=== PATIENT | female | born 1985 | race African-American/Black ===

== ENCOUNTER 2017-02-06 20:47 | Emergency (ER) | payer OTHER ==
[~2017-02-06] VITALS: Ht 160 cm; Wt 81.7 kg
[~2017-02-06 20:47] MED LIST: ADULT LOW DOSE81 MG PO; ALBUTEROL INHAL17 GM IH; APAP500 PO; AZITHROMYCIN 2250 MG PO; BACTRIM DS TAB1 EACH PO; BENADRYL25 MG PO; BIRTH CONTROL; DAILY GARLIC O400 MG; DELTASONE20 MG PO; DEPO-ESTRAD5 MG/1 ML IM; DIFLUCAN150 M1 PO; DIFLUCAN150 MG PO; DIFLUCAN200 MG PO; DOXYCYCLINE 10100 M1 PO; FAMOTIDINE PO; FLAGYL500 MG PO; IRON325 PO; NAPROSYN500 MG PO; NORCO 5-325 TA1 EACH PO; PERCOCET 5-3251 EACH PO; PHENERGAN-CODE120 ML PO; PREDNISONE 20 M20 M1 PO; PRENATAL PO; SYNTHROID25 MCG PO; URISPAS100 MG PO; YASMIN 28 TABL1 EACH PO; ZPAK PO
[2017-02-06] MEDS ORDERED: NORCO 5-325 TA1 EACH PO (21:48)
[2017-02-06 21:57] VITALS: BP 130/82
== END 2017-02-06 22:03 | disposition home or self-care (01) ==
LOC: ER 20:47
DX: M43.6 Torticollis (principal); J45.909 Unspecified asthma, uncomplicated; E03.9 Hypothyroidism, unspecified; Z90.49 Acquired absence of other specified parts of digestive tract; F12.10 Cannabis abuse, uncomplicated; Z88.0 Allergy status to penicillin

== ENCOUNTER 2017-02-15 19:17 | Emergency (ER) | payer OTHER ==
[~2017-02-15] VITALS: Ht 162.6 cm; Wt 81.7 kg
[2017-02-15] MEDS ORDERED: NORCO 5-325 TA1 EACH PO (19:35)
[2017-02-15] MEDS ORDERED: ROBITUSSIN100 MG/53 PO (19:35)
[2017-02-15 19:56] VITALS: BP 122/86
== END 2017-02-15 20:05 | disposition home or self-care (01) ==
LOC: ER 19:17
DX: M54.5 Low back pain (principal); J06.9 Acute upper respiratory infection, unspecified; J45.909 Unspecified asthma, uncomplicated; Z90.49 Acquired absence of other specified parts of digestive tract; Z86.39 Personal history of other endocrine, nutritional and metabolic disease

== ENCOUNTER 2017-02-21 22:58 | Emergency (ER) | payer OTHER ==
[~2017-02-21] VITALS: Ht 162.6 cm; Wt 81.7 kg
[~2017-02-21 22:58] MED LIST changes: +ROBITUSSIN100 MG/53 PO
[2017-02-21 23:41] LABS: URINE BILIRUBIN NEGATIVE (Negative); URINE BLOOD TRACE (Negative); URINE COLOR YELLOW; URINE GLUCOSE-RANDOM* NEGATIVE (Negative); URINE KETONES NEGATIVE (Negative); URINE LEUKOCYTES-REFLEX NEGATIVE (Negative); URINE PROTEIN (DIPSTICK) NEGATIVE (Negative); URINE SPECIFIC GRAVITY 1.025 (1.003-1.035); URINE UROBILINOGEN 0.2 E.U./dl (0.2-1.0)
[2017-02-21 23:59] LABS: ABSOLUTE NEUTROPHILS 7.7 thou/uL (1.4-8.2); EOSINOPHILS 1.9 % (0.0-3.0); HEMATOCRIT 42.5 % (37.0-47.0); HEMOGLOBIN 14.5 gm/dL (12.0-15.0); LYMPHOCYTES 31.7 % (24.0-44.0); MCHC 34.1 g/dL (28.0-37.0); MCV 91.1 fL (80.0-100.0); MONOCYTES 6.1 % (1.0-8.0); PLATELET COUNT 252 thou/uL (150-400); POLYS 59.3 % (36.0-66.0); RBC 4.67 mil/uL (4.20-5.00); RDW 13.2 % (10.5-14.5)
[2017-02-22 00:07] LABS: ANION GAP 8 mmol/L (7-16); BUN 8 mg/dL (7-18); CALCIUM 9.2 mg/dL (8.5-10.1); CHLORIDE 103 mmol/L (98-107); CO2 27 mmol/L (21-32); GLUCOSE 76 mg/dL (74-106); POTASSIUM 3.5 mmol/L (3.5-5.1); SODIUM 138 mmol/L (136-145)
[2017-02-22 00:11] LABS: MANUAL DIFF NO
[2017-02-22 00:13] LABS: ALBUMIN 4.2 g/dL (3.4-5.0); ALKALINE PHOSPHATASE 84 U/L (46-116); DIRECT BILIRUBIN < 0.1 mg/dL (<0.1-0.3); SGOT 21 U/L (15-37); SGPT 18 U/L (30-65); TOTAL BILIRUBIN 0.2 mg/dL (<0.1-1.0); TOTAL PROTEIN 8.8 g/dL (6.4-8.2)
[2017-02-22 02:14] VITALS: BP 144/97
== END 2017-02-22 02:16 | disposition home or self-care (01) ==
LOC: ER 22:58
PROVIDERS: Emergency Medicine
DX: R10.32 Left lower quadrant pain (principal); D72.829 Elevated white blood cell count, unspecified; J44.9 Chronic obstructive pulmonary disease, unspecified; Z90.49 Acquired absence of other specified parts of digestive tract; F12.10 Cannabis abuse, uncomplicated

== ENCOUNTER 2017-08-26 07:15 | Emergency (ER) | payer OTHER ==
[~2017-08-26] VITALS: Ht 162.6 cm; Wt 81.7 kg
[2017-08-26 07:55] LABS: URINE BILIRUBIN NEGATIVE (Negative); URINE BLOOD 1+ (Negative); URINE CLARITY CLEAR; URINE COLOR YELLOW; URINE GLUCOSE-RANDOM* NEGATIVE (Negative); URINE KETONES NEGATIVE (Negative); URINE LEUKOCYTES-REFLEX TRACE (Negative); URINE NITRITE-REFLEX NEGATIVE (Negative); URINE PROTEIN (DIPSTICK) NEGATIVE (Negative); URINE SPECIFIC GRAVITY 1.015 (1.005-1.035); URINE UROBILINOGEN 0.2 E.U./dl (0.2-1.0)
[2017-08-26 08:09] LABS: ABSOLUTE NEUTROPHILS 8.5 thou/uL (1.4-8.2); BASOPHILS 0.8 % (0.0-2.0); EOSINOPHILS 0.6 % (0.0-3.0); HEMOGLOBIN 12.9 gm/dL (12.0-15.0); LYMPHOCYTES 23.6 % (24.0-44.0); MCH 30.8 pg (26.0-34.0); MCHC 33.2 g/dL (28.0-37.0); MCV 92.9 fL (80.0-100.0); MONOCYTES 6.2 % (1.0-8.0); PLATELET COUNT 225 thou/uL (150-400); POLYS 68.8 % (36.0-66.0); RDW 13.4 % (10.5-14.5); WBC 12.3 thou/uL (4.0-11.0)
[2017-08-26 08:12] LABS: SQUAMOUS 4-10 Moderate /LPF (0-3)
[2017-08-26 08:13] LABS: CALCIUM 8.4 mg/dL (8.5-10.1); CREATININE 0.9 mg/dL (0.6-1.0)
[2017-08-26 08:13] LABS: BACTERIA-REFLEX >30 Many /HPF (None Seen); CASTS None Seen /LPF (None Seen); CRYSTALS None Seen /LPF (None Seen)
[2017-08-26 08:19] LABS: ALBUMIN 3.4 g/dL (3.4-5.0); TOTAL BILIRUBIN 0.2 mg/dL (<0.1-1.0); TOTAL PROTEIN 7.1 g/dL (6.4-8.2)
[2017-08-26] MEDS ORDERED: TRAMADOL 50 MG50 MG PO (09:17)
[2017-08-26] MEDS ORDERED: KEFLEX500 M1 PO (09:17)
[2017-08-26] MEDS ORDERED: NAPROSYN500 MG PO (09:17)
[2017-08-26 10:12] VITALS: BP 123/56
== END 2017-08-26 10:14 | disposition home or self-care (01) ==
LOC: ER 07:15
PROVIDERS: Emergency Medicine
DX: N12 Tubulo-interstitial nephritis, not specified as acute or chronic (principal); N30.90 Cystitis, unspecified without hematuria; N85.2 Hypertrophy of uterus; J45.909 Unspecified asthma, uncomplicated

== ENCOUNTER 2017-11-21 18:49 | Emergency (ER) | payer OTHER ==
[~2017-11-21] VITALS: Ht 160 cm; Wt 86.2 kg
[~2017-11-21 18:49] MED LIST changes: +KEFLEX500 M1 PO; +TRAMADOL 50 MG50 MG PO
[2017-11-21] MEDS ORDERED: NORFLEX100 MG PO (19:36)
[2017-11-21] MEDS ORDERED: NAPROSYN500 MG PO (19:36)
[2017-11-21 19:40] VITALS: BP 126/80
== END 2017-11-21 19:45 | disposition home or self-care (01) ==
LOC: ER 18:49
DX: S29.012A Strain of muscle and tendon of back wall of thorax, initial encounter (principal); J45.909 Unspecified asthma, uncomplicated; E07.9 Disorder of thyroid, unspecified; X58.XXXA Exposure to other specified factors, initial encounter; Y93.89 Activity, other specified; Y92.89 Other specified places as the place of occurrence of the external cause; Y99.8 Other external cause status

== ENCOUNTER 2018-01-21 00:47 | Emergency (ER) | payer OTHER ==
[~2018-01-21] VITALS: Ht 160 cm; Wt 90.7 kg
[~2018-01-21 00:47] MED LIST changes: +NORFLEX100 MG PO
[2018-01-21 01:00] VITALS: BP 129/72
[2018-01-21 01:32] LABS: URINE BILIRUBIN NEGATIVE (Negative); URINE BLOOD NEGATIVE (Negative); URINE CLARITY CLEAR; URINE COLOR YELLOW; URINE GLUCOSE-RANDOM* NEGATIVE (Negative); URINE KETONES NEGATIVE (Negative); URINE LEUKOCYTES-REFLEX NEGATIVE (Negative); URINE NITRITE-REFLEX NEGATIVE (Negative); URINE PROTEIN (DIPSTICK) NEGATIVE (Negative); URINE SPECIFIC GRAVITY 1.025 (1.005-1.035); URINE UROBILINOGEN 0.2 E.U./dl (0.2-1.0)
[2018-01-21] MEDS ORDERED: METROGEL-VAGINA70 GM VAG (02:02)
[2018-01-21 08:53] LABS: HSV PCR SOURCE PERINEAL
[2018-01-22 14:09] LABS: NEISSERIA GONORRHEA-PCR Negative (Negative)
[2018-01-23 17:12] LABS: HSV 1 DNA Positive (Negative); HSV 2 DNA Negative (Negative)
== END 2018-01-21 02:12 | disposition home or self-care (01) ==
LOC: ER 00:47
PROVIDERS: Emergency Medicine
DX: N76.0 Acute vaginitis (principal); J45.909 Unspecified asthma, uncomplicated; E07.9 Disorder of thyroid, unspecified; Z90.49 Acquired absence of other specified parts of digestive tract; Z98.890 Other specified postprocedural states; Z88.1 Allergy status to other antibiotic agents; Z88.8 Allergy status to other drugs, medicaments and biological substances